=== PATIENT | male | born 1990 | race African-American/Black ===

== ENCOUNTER 2021-01-06 05:54 | Emergency (ER) | payer MEDICAID, SELFPAY ==
--- NOTE | ~2021-01-06 | XR_ITS ---
EXAMINATION: XR shoulder RT min 2V DATE: 01/06/2021 06:33 INDICATION: Right shoulder pain. Laceration. TECHNIQUE: 4 views of right shoulder were obtained. COMPARISON: None. FINDINGS: Bone alignment is normal. No fracture. Joint spaces are well maintained. IMPRESSION: 1. No fracture or radiopaque foreign body. Reviewed, dictated and finalized at location A.
--- NOTE | ~2021-01-06 | CT_ITS ---
EXAMINATION: CTA UE RT DATE: 01/06/2021 07:50 INDICATION: Right shoulder injury. TECHNIQUE: Computed tomographic angiography (CTA) of the right upper limb was performed with 100 mL O mnipaque-350 intravenous contrast. Automated exposure control and iterative reconstruction technique were employed. The dose-length product was 1118.10 mGy-cm. Maximum intensity projection 3D-reconstruc tions of the arteries were constructed by the technologist on a separate workstation. COMPARISON: None. FINDINGS: Bone alignment is normal. No fracture. Joint spaces are normal. There is a laceration of th e anterior upper arm with subcutaneous hematoma and some foci of soft tissue gas. The arteries are no rmal. IMPRESSION: 1. Subcutaneous hematoma in the upper arm. No arterial injury. Reviewed, dictated and finalized at location A.
[2021-01-06 06:03] VITALS: BP 128/79; PULSE 99; RESP 18; TEMP 36.6; O2SAT 100
--- NOTE | 2021-01-06 06:16 | ED.WOUNDLAC ---
HPI - Wound/Laceration General Chief Complaint: Wound/Laceration <Rahat Linda MD - Last Filed: 01/06/21 19:02> Stated Complaint: fell on some glass <Rahat Linda MD - Last Filed: 01/06/21 19:02> Time Seen by Provider: 01/06/21 06:00 <Rahat Linda MD - Last Filed: 01/06/21 19:02> History of Present Illness HPI narrative: Patient is a 30-year-old male who presents the ER after falling on some glass. Reports he was out at the bars last night and returned this morning and was walking to the parking lot when he tripped and fell on some loose beer bottles. Reports he got glass stuck in the front and back of his right shoulder. No numbness or tingling to extremity and has full range of motion. Last tetanus shot was in 2012. Did not lose consciousness or suffer any additional injury. Patient denies being assaulted. Patient reports he only came in because he could not get it to stop bleeding. <Rahat Linda MD - Last Filed: 01/06/21 19:02> Related Data Allergies/Adverse Reactions: Allergies Allergy/AdvReac Type Severity Reaction Status Date / Time No Known Allergies Allergy Verified 01/06/21 06:07 <Rahat Linda MD - Last Filed: 01/06/21 19:02> Review of Systems Musculoskeletal: Musculoskeletal: Denies arthralgias, Denies joint swelling and Denies muscle cramps <Rahat Linda MD - Last Filed: 01/06/21 19:02> Integumentary/Breasts: Comments: Lacerations to her shoulder. <Rahat Linda MD - Last Filed: 01/06/21 19:02> Neurologic: Denies syncope, Denies focal weakness and Denies numbness <Rahat Linda MD - Last Filed: 01/06/21 19:02> [facility] Past Medical History Medical History: Medical History (Updated 01/06/21 @ 10:28 by Purnima Trinidad MD) Healthy adult male <Rahat Linda MD - Last Filed: 01/06/21 19:02> Surgical History Surgical History: Surgical History (Updated 01/06/21 @ 06:18 by Rahat Linda MD) No history of previous surgery <Rahat Linda MD - Last Filed: 01/06/21 19:02> Social History Social History: Social History (Updated 01/06/21 @ 06:18 by Rahat Linda MD) Alcohol intake: current <Rahat Linda MD - Last Filed: 01/06/21 19:02> Exam Narrative: Exam Narrative: GENERAL: Well-appearing, well-nourished, and in no acute distress. HEAD: Normocephalic, atraumatic. EYES: PERRL and EOMI. CHEST: Clear to auscultation. No respiratory distress. HEART: Regular rate and rhythm. Normal peripheral pulses. EXTREMITIES: Normal range of motion. No edema. Neurovascular intact in right upper extremity. SKIN: Warm, dry, no rash. 2 cm laceration posterior right shoulder and anterior right shoulder. Modest amount of bleeding coming from the anterior wound. NEURO: Alert and oriented x3. PSYCH: Normal mood and affect. <Rahat Linda MD - Last Filed: 01/06/21 19:02> Course Reevaluation(s) Reevaluation #1: Patient developing more of a hematoma in the proximal right upper extremity but not in the axilla. Suspect that could be vessel injury will perform CTA of the upper extremity. Lacerations repaired. JAYLEN to Dr. Trinidad. <Rahat Linda MD - Last Filed: 01/06/21 19:02> Wound evaluation showed no active bleeding at this time for at least 35 minutes after removing the pressure dressing. Patient agreed with the discharge. And was informed to come back to the emergency room immediately if the wound to start to bleed again. Patient understood. <Purnima Trinidad MD - Last Filed: 01/06/21 10:36> Date: 01/06/21 <Rahat Linda MD - Last Filed: 01/06/21 19:02> 01/06/21 <Purnima Trinidad MD - Last Filed: 01/06/21 10:36> Time: 07:04 <Rahat Linda MD - Last Filed: 01/06/21 19:02> 10:29 <Purnima Trinidad MD - Last Filed: 01/06/21 10:36> Consultations Consultation #1: Dr. Miramontes Transfer to a trauma center <Purnima Trinidad MD - Last Filed: 01/06/21 10:36>
[2021-01-06] MEDS: SODIUM CHLORIDE 0.9% IV 1,000 ML 999 ML IV CONT (07:10)
[2021-01-06 07:12] LABS: Basophils Absolute Auto 0.1 K/mm3 (0.0-0.1); Eosinophils Absolute Auto 0.2 K/mm3 (0-0.3); Eosinophils Percent Auto 3.1 % (0-4.4); Hematocrit 43.4 % (42.0-52.0); Hemoglobin 16.2 g/dL (14.0-18.0); Immature Granulocyte Absolute 0.02 K/mm3 (0.00-0.031); Immature Granulocyte Percent A 0.3 % (0-0.5); Lymphocytes Absolute Auto 2.09 K/mm3 (0.9-3.2); Lymphocytes Percent Auto 28.5 % (18.3-44.2); Mean Corpuscular HGB Conc 37.3 g/dl (32-36); Mean Platelet Volume 9.7 fl (7.4-10.4); Monocytes Absolute Auto 0.8 K/mm3 (0.1-0.6); Monocytes Percent Auto 10.4 % (2.6-8.5); Neutrophils Absolute Auto 4.2 K/mm3 (1.3-6.7); Neutrophils Percent Auto 56.7 % (45.5-73.1); Platelet Count Result 234 k/mm3 (150-375); Red Blood Count 5.23 M/mm3 (4.6-6.20); Red Cell Distribution Width 11.7 % (11.5-14.5); White Blood Count 7.3 K/mm3 (4.5-10.0)
[2021-01-06 07:15] VITALS: BP 137/89; PULSE 68; RESP 14; O2SAT 99
[2021-01-06 07:22] LABS: Anion Gap 10 mmol/L (8-16); Blood Urea Nitrogen 5 mg/dL (9-20); Calcium 9.3 mg/dL (8.4-10.2); Carbon Dioxide 26 mmol/L (22-30); Chloride 108 mmol/L (98-107); Estimated CRCL calculation 140 ml/min; Estimated Glomerular Filt Rate > 60; Glucose 97 mg/dL (75-110); Potassium 3.8 mmol/L (3.4-5.0); Sodium 144 mmol/L (137-145)
[2021-01-06] MEDS: ONDANSETRON INJ 4 MG/2 ML VIAL IV PUSH (07:30)
[2021-01-06 07:47] LABS: Estimated CRCL calculation 100 ml/min; Estimated Glomerular Filt Rate > 60
[2021-01-06 08:00] VITALS: BP 137/98; PULSE 73; RESP 20; O2SAT 99
[2021-01-06 09:08] VITALS: BP 131/84; PULSE 70; RESP 14; O2SAT 98
--- NOTE | 2021-01-06 09:09 | PC.NURSE ---
Unwrapped dressing to examine the sutures for bleeding. Bleeding started upon removal of dressing. Dressing reapplied, bleeding controlled. ERP notified. PMS intact.
--- NOTE | 2021-01-06 10:00 | PC.NURSE ---
ERP removed pressure dressing to examine sutures. Bleeding has been controlled without dressing. PMS intact. Pt is comfortable with discharge. ERP is comfortable with discharge. Pt. will not be transferred over to [facility].
[2021-01-06 10:15] VITALS: BP 129/92; PULSE 78; RESP 14; O2SAT 99
== END 2021-01-06 10:35 | disposition home or self-care (01) ==
PROVIDERS: Emergency Medicine; Emergency Provider Emergency Medicine
DX: S41.011A Laceration without foreign body of right shoulder, initial encounter (principal); S40.021A Contusion of right upper arm, initial encounter; W01.110A Fall on same level from slipping, tripping and stumbling with subsequent striking against sharp glass, initial encounter
CPT/HCPCS: 12002; 36415; 73030; 73206; 80048; 85025; 96361; 96374; 99284; J2405; J7030; Q9967